=== PATIENT | male | born 1960 | race Hispanic/Latino ===

== ENCOUNTER 2023-11-28 11:29 | Day surgery (SDC) | payer OTHER, SELFPAY ==
[2023-11-28] MEDS: LACTATED RINGERS 1,000 ML 100 ML IV (11:40)
[2023-11-28 11:59] VITALS: BP 121/83; PULSE 73; RESP 16; TEMP 36.8; O2SAT 98
--- NOTE | 2023-11-28 12:34 | PM.HP.1 ---
History of Present Illness History of Present Illness Chief complaint: EGD/Colonoscopy Narrative: GE reflux controlled near 100% on omeprazole 20 mg daily. In addition has a history of colon polyps and occasional history of bright red blood per rectum painless sleep. [facility] Medical History (Updated 10/24/23 @ 11:01 by Rom Martínez MD) Frequency of micturition Urgency incontinence Erectile dysfunction Bladder outlet obstruction History of tobacco use Incomplete emptying of bladder Lower urinary tract symptoms Hx of gastroesophageal reflux (GERD) History of depression Surgical History Hx of cholecystectomy Social History marital status: number of children: 2 occupational status: employed Smoking Status: Never smoker alcohol intake: current caffeine: Yes Type(s) of exercise: regular exercise frequency: 1-2 times per week duration: > 90 minutes/day Meds Home Medications and Allergies Home Medications Medication Instructions Recorded Confirmed Type omeprazole 40 mg capsule,delayed 40 mg PO BID #28 caps 06/11/17 10/24/23 Rx release alfuzosin 10 mg tablet,extended 10 mg PO DAILY #90 tabs 09/21/23 10/24/23 Rx release 24 hr vibegron 75 mg tablet (Gemtesa) 75 mg PO DAILY #30 tabs 10/24/23 10/24/23 Rx carbidopa ER 25 mg-levodopa 100 mg 1 tab PO QPM 11/28/23 11/28/23 History tablet,extended release omeprazole 20 mg capsule,delayed 20 mg PO DAILY 11/28/23 11/28/23 History release quetiapine 100 mg tablet 100 mg PO ONCE PM insomnia 11/28/23 11/28/23 History Allergies Allergy/AdvReac Type Severity Reaction Status Date / Time Penicillins [PENICILLINS] Allergy Mild RASH Verified 11/28/23 11:54 bupropion Allergy Unknown Verified 11/28/23 11:54 Exam Vital Signs (past 8 hours): - 11/28/23 11:59 Temperature 98.2 F Pulse Rate 73 Respiratory Rate 16 Blood Pressure 121/83 Pulse Oximetry 98 Oxygen Delivery Method Room Air Oxygen Delivery Method Room Air Narrative Exam Narrative: Oropharynx free of lesions Chest clear to auscultation percussion Cardiac exam reveals no S3 or murmur Assessment & Plan Assessment & Plan narrative: GE reflux need for esophageal evaluation. Risks, benefits, alternatives have been explained for EGD History of probable colon polyps with more recent history of intermittent bright red rectal bleeding without pain. Risks benefits alternatives to colonoscopy have been explained. Time-Based Coding :: [TOTAL MINUTES] spent with patient and on the chart (including review of chart, obtaining history, exam, reviewing outside data, placing orders, documenting exam and treatment plan, and counseling patient) on [DATE].
--- NOTE | 2023-11-28 12:37 | PM.OP.EC ---
Operative Date/Time/Diagnoses Date of procedure: 11/28/23 Pre-op diagnosis: See indication and findings Procedure & Clinicians Study performed: EGD and colonoscopy Indications: History of GE reflux need for further evaluation. Also history of colon polyps and a intermittent history of painless bright red blood per rectum. Surgeon: Ezequiel Fenton Procedure Notes Procedure in detail: After informed consent was obtained the patient was placed in left lateral decubitus position. The video upper scope was placed into the oropharynx and with the patient's help swallowed into the esophagus. The esophagus stomach and duodenum were carefully examined. On withdrawal, retroflexed view the GE junction was performed. The scope was removed. The patient tolerated procedure well. The patient was then turned and the colonoscope substituted. This is placed into the rectum slowly advanced cecum. Preparation was good. On slow withdrawal mucosa was carefully examined. The scope was removed. The patient tolerated procedure well. Blood loss none Complications none Sedation mac Findings EGD 1. Normal tubular esophagus 2. Wide-open Schatzki's ring at the squamocolumnar junction 3. Lower esophageal sphincter appeared normal 4. Normal stomach and normal duodenum Colonoscopy 1. Large internal hemorrhoids most likely the source of bleeding 2. Otherwise negative colonoscopy to cecum Patient will try omeprazole 40 mg every other day until medicating any potential side effects from medication. He is also being helped taking 20 mg daily and if the 40 every other day. is not enough this regiment of 20 q.day. is potentially helpful. If he continues having frequent bleeding surgical referral can be made to evaluate for hemorrhoidectomy. Patient should have follow-up colonoscopy in 5-10 years
[2023-11-28 13:01] VITALS: BP 94/64; PULSE 63; RESP 14; TEMP 36.5; O2SAT 94
[2023-11-28 13:06] VITALS: BP 95/66; PULSE 59; RESP 15; O2SAT 94
[2023-11-28 13:11] VITALS: BP 104/74; PULSE 74; RESP 21; O2SAT 96
[2023-11-28 13:15] VITALS: BP 108/71; PULSE 80; RESP 15; TEMP 36.7; O2SAT 96
== END 2023-11-28 14:09 | disposition home or self-care (01) ==
PROVIDERS: Referring Provider Internal Medicine Gastroenterology; Visit Provider Internal Medicine Gastroenterology
PROC: 0DJ08ZZ Inspection of Upper Intestinal Tract, Via Natural or Artificial Opening Endoscopic (ICD-10-PCS; CPT 45378; principal; 2023-11-28 12:30)
PROC: 0DJD8ZZ Inspection of Lower Intestinal Tract, Via Natural or Artificial Opening Endoscopic (ICD-10-PCS; CPT 45378; 2023-11-28 12:30)
DX: K62.5 Hemorrhage of anus and rectum (principal); Z86.010 Personal history of colon polyps; K64.8 Other hemorrhoids; K21.9 Gastro-esophageal reflux disease without esophagitis; K22.2 Esophageal obstruction
CPT/HCPCS: 45378; 43235; J2704